=== PATIENT | male | born 1970 | race African-American/Black ===

== ENCOUNTER → 2018-12-11 | Day surgery (SDC) | payer BC, MEDICARE ==
[~2018-12-11] MED LIST: ARIP5TAB13 PO; BACL5TAB PO; CARB200T PO; CLON1TAB11 PO; EZET10TA18 PO; HYDR-2761 PO; IV RINGERS,LACTATED 1000ML 1,000 ML IV SCH; LIDOCAINE 2% PF 5 ML VIAL. ONE; PARO40TA3 PO; PRAZ2CAP2 PO; PROPOFOL 40 ML IV ONE
[2018-12-11 08:55] VITALS: BP 121/77
--- NOTE | 2018-12-11 23:10 | CONS ---
DATE OF CONSULTATION: 12/11/2018 REFERRING PHYSICIAN: Dr. John Sims REASON FOR CONSULTATION: Colorectal screening. HISTORY OF PRESENT ILLNESS: This is a 48-year-old male with past medical history significant for CVA, COPD, hyperlipidemia, is seen for a screening colon exam. Bowel habits are regular without diarrhea or constipation. There has been no melena and/or hematochezia. Weight and appetite are stable. He is otherwise without additional complaints. PAST MEDICAL HISTORY: Status post CVA, depression, COPD, hyperlipidemia. ALLERGIES: PENICILLIN. MEDICATIONS: Include Abilify, baclofen, Tegretol, clonazepam, Zetia, hydrocodone, paroxetine and prazosin. FAMILY AND SOCIAL HISTORY: Significant for diabetes and hypertension with mother. He is a former drinker and nonsmoker. PAST SURGICAL HISTORY: Noncontributory. REVIEW OF SYSTEMS: Per records. PHYSICAL EXAMINATION: GENERAL: Reveals a well-nourished, well-developed male who is alert, cooperative, in no acute distress. VITAL SIGNS: Temp is 97.5, pulse 68, respiratory rate is 20. HEENT: Reveals normocephalic and atraumatic head. Pupils and extraocular muscles are not tested. Sclerae anicteric. NECK: Supple. LUNGS: Clear. CARDIOVASCULAR: Reveals an S1, S2 without S3, S4 or appreciable murmur. ABDOMEN: Reveals a soft abdomen, normal bowel sounds without appreciable hepatosplenomegaly. EXTREMITIES: Reveals no cyanosis, clubbing or edema. IMPRESSION: Colorectal screening is warranted at this time. Risks and benefits of the procedure including risk of hemorrhage and perforation have been discussed. The patient is willing to proceed at this time. I would like to thank Dr. Sims for allowing us to consult and participate in this patient's care. LESVIA GUTIÉRREZ MD DR: DEANNA/niko JOB#: [id number] / [id number]
== END | disposition home or self-care (01) ==
LOC: SURG 07:05
PROVIDERS: ATTEND Internal Medicine Gastroenterology
DX: Z12.11 Encounter for screening for malignant neoplasm of colon (principal); K57.30 Diverticulosis of large intestine without perforation or abscess without bleeding; K64.0 First degree hemorrhoids; J44.9 Chronic obstructive pulmonary disease, unspecified; E78.5 Hyperlipidemia, unspecified; Z86.73 Personal history of transient ischemic attack (TIA), and cerebral infarction without residual deficits; F32.9 Major depressive disorder, single episode, unspecified; Z88.0 Allergy status to penicillin; Z79.899 Other long term (current) drug therapy; Z83.3 Family history of diabetes mellitus; Z82.49 Family history of ischemic heart disease and other diseases of the circulatory system
CPT/HCPCS: G0121; J2001; J2704; 45378